=== PATIENT | male | born 1990 | race Hispanic/Latino ===

== ENCOUNTER 2019-11-14 15:18 | Outpatient (CLI) | payer OTHER ==
--- NOTE | 2019-11-14 17:08 | RAD ---
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 COMPARISON: Left hand radiograph 11/14/19. FINDINGS: Three views of the right hand shows no evidence of acute fracture or dislocation. There is boutonnier e deformity of the third through fifth fingers on this side. This is not significantly different than the middle and ring fingers on the opposite side but the small finger on the opposite side is straig hter. No obvious soft tissue swelling is seen. IMPRESSION: No evidence of acute osseous abnormality. POS: [facility]
--- NOTE | 2019-11-14 18:00 | RAD ---
LEFT HAND THREE VIEWS: 11/14/19 INDICATIONS: Question boutonniere deformity fifth digit. The metacarpals and phalanges appear unremarkable. MCP and IP joints unremarkable. No abnormal flexion deformity seen at any of the PIP joints that would indicate a boutonniere deformi ty. Slight extension at the DIP joints of the third and fourth digits is similar to the appearance of the right hand. IMPRESSION: Unremarkable left hand. POS: [facility]
== END 2019-11-14 15:19 | disposition home or self-care (01) ==
LOC: NAV RAD 15:18
PROVIDERS: ATTEND Dietitian, Registered
DX: M20.021 Boutonniere deformity of right finger(s) (principal); M79.644 Pain in right finger(s)